=== PATIENT | male | born 1990 | race Caucasian/White ===

== ENCOUNTER 2019-07-09 20:50 | Emergency (ER) | payer OTHER ==
[~2019-07-09] VITALS: Ht 185.4 cm; Wt 90.7 kg
[~2019-07-09 20:50] MED LIST: ACYCLOVIR 400400 M1 PO; ASPIRIN EC325 M1; ATIVAN1 MG PO; ATIVAN2 MG PO; BACTRIM 400-801 EACH PO; CELLCEPT 250 M250 M1 PO; CELLCEPT500 MG PO; COUMADIN 5 MG TA5 M1 PO; CYCLOBENZAPRINE10 MG PO; DIAZEPAM 5 MG5 M1 PO; ENALAPRIL MALEA10 M1 PO; FENTANYL 1100 MCG/HR TP; FLEXERIL PO; HYDROXYCHLOROQ200 M1 PO; LASIX 40 MG TAB40 MG PO; LIDODERM 5%1 PATCH TOP; LIPITOR20 MG PO; LOVENOX SC; MIRALAX255 GM PO; NOHOMEMEDICATIONS; NORCO 10-325 T1 EACH PO; NORCO 5-325 TA1 EACH PO; OS-CAL ULTRA T1 EACH PO; OXYCODONE HCL15 MG PO; OXYCODONE HCL5 M1 PO; OXYIR 5 MG CAPSU5 M1 PO; PERCOCET 5-3251 EACH PO; PRAVASTATIN SOD40 MG PO; PREDNISONE 10 M10 M1 PO; PRENATAL; PROAIR HFA8.5 GM; TOBREX3.5 GM OP; VALTREX 500 MG500 MG PO; VASOTEC20 MG PO; VITAMIN B OR; VITAMIN B-1100 M1 PO; VITAMIN B-12500 MCG PO; VITAMIN D1000 UNI1 PO; ZOFRAN4 MG PO
[2019-07-09 21:21] LABS: ABSOLUTE BASOPHILS 0.1 thou/uL (0.0-0.2); ABSOLUTE EOSINOPHILS 0.2 thou/uL (0.0-0.7); ABSOLUTE LYMPHOCYTES 2.8 thou/uL (0.8-5.3); ABSOLUTE MONOCYTES 0.8 thou/uL (0.0-1.2); ABSOLUTE NEUTROPHILS 9.4 thou/uL (1.6-8.1); BASOPHILS 0.9 %; EOSINOPHILS 1.7 %; HEMATOCRIT 42.5 % (42.0-52.0); HEMOGLOBIN 14.7 gm/dL (14.0-18.0); MCH 32.7 pg (26.0-34.0); MCHC 34.6 g/dL (28.0-37.0); MCV 94.4 fL (80.0-100.0); MONOCYTES 5.7 %; MPV 8.3 fl. (7.2-11.1); NUCLEATED RBCS 0 /100WBC; PLATELET COUNT* 232 thou/uL (150-400); POLYS 70.7 %; RBC 4.51 mil/uL (4.50-6.00); WBC 13.3 thou/uL (4.0-11.0)
[2019-07-09 21:25] LABS: ANION GAP 16 mmol/L (7-16); BUN 12 mg/dL (7-18); CALCIUM 8.7 mg/dL (8.5-10.1); CHLORIDE 103 mmol/L (98-107); CO2 22 mmol/L (21-32); CREATININE 1.1 mg/dL (0.6-1.3); GLUCOSE 87 mg/dL (70-99); POTASSIUM 3.6 mmol/L (3.5-5.1); SODIUM 141 mmol/L (136-145)
[2019-07-09 21:26] LABS: APTT 38.6 Seconds (25.0-31.3); INR 1.1; PROTIME 11.2 Seconds (9.20-11.50)
[2019-07-09 21:36] LABS: ALBUMIN 4.1 g/dL (3.4-5.0); ALKALINE PHOSPHATASE 85 U/L (46-116); NT-PRO BRAIN NAT PEPTIDE < 5 pg/mL (<300); SGOT 17 U/L (15-37); SGPT 15 U/L (30-65); TOTAL BILIRUBIN 0.3 mg/dL (<0.1-1.0); TOTAL PROTEIN 7.9 g/dL (6.4-8.2)
[2019-07-09 21:38] LABS: INFLUENZA A ANTIGEN Negative (Negative); INFLUENZA B ANTIGEN Negative (Negative)
[2019-07-09 22:14] VITALS: BP 140/84
--- NOTE | 2019-07-10 11:51 | EKG ---
[place] [address] ELECTROCARDIOGRAM REPORT Name: MARCUS TSE 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[id number] Requested By: Candido Denise Order Number: [id number] MD: Anoop James Measurements Intervals [place] Rate: 87 P: 50 NH: 175 QRS: 36 QRSD: 82 T: 66 QT: 348 QTc: 419 Interpretive Statements Sinus rhythm Compared to ECG 08/17/2015 05:28:48 Sinus tachycardia no longer present ST (T wave) deviation no longer present Electronically Signed On 07-10-2019 11:49:59 CDT by Anoop James [email or web address] <ELECTRONICALLY SIGNED> By: Anoop James MD, [facility] 07/10/19 [id number] 58 Anoop James MD, [facility] /EPI
== END 2019-07-09 22:30 | disposition home or self-care (01) ==
LOC: M.ERS 20:50
PROVIDERS: Family Medicine
DX: J06.9 Acute upper respiratory infection, unspecified (principal); F41.0 Panic disorder [episodic paroxysmal anxiety]; I12.9 Hypertensive chronic kidney disease with stage 1 through stage 4 chronic kidney disease, or unspecified chronic kidney disease; N18.4 Chronic kidney disease, stage 4 (severe); M06.9 Rheumatoid arthritis, unspecified; F41.9 Anxiety disorder, unspecified; F32.9 Major depressive disorder, single episode, unspecified; F17.210 Nicotine dependence, cigarettes, uncomplicated; Z90.49 Acquired absence of other specified parts of digestive tract; Z86.14 Personal history of Methicillin resistant Staphylococcus aureus infection; Z86.2 Personal history of diseases of the blood and blood-forming organs and certain disorders involving the immune mechanism; Z88.0 Allergy status to penicillin

== ENCOUNTER 2020-01-15 02:30 | Emergency (ER) | payer OTHER ==
[~2020-01-15] VITALS: Ht 185.4 cm; Wt 90.7 kg
[2020-01-15] MEDS ORDERED: DOXYCYCLINE 10100 M2 PO (04:12)
[2020-01-15] MEDS ORDERED: NORCO 5-325 TA1 EAC2 PO ×2 (04:12→04:15)
[2020-01-15 04:34] VITALS: BP 120/70
== END 2020-01-15 04:36 | disposition home or self-care (01) ==
LOC: M.ERS 02:30
DX: S40.012A Contusion of left shoulder, initial encounter (principal); S00.83XA Contusion of other part of head, initial encounter; R07.81 Pleurodynia; Y08.89XA Assault by other specified means, initial encounter; Y93.89 Activity, other specified; Y92.89 Other specified places as the place of occurrence of the external cause; Y99.8 Other external cause status

== ENCOUNTER 2020-02-27 15:52 | Emergency (ER) | payer OTHER ==
[~2020-02-27] VITALS: Ht 185.4 cm; Wt 83.9 kg
[~2020-02-27 15:52] MED LIST changes: +DOXYCYCLINE 10100 M2 PO; +NORCO 5-325 TA1 EAC2 PO
[2020-02-27] MEDS ORDERED: LORAZEPAM 1 MG T1 MG PO (16:06)
[2020-02-27] MEDS ORDERED: ZOLOFT50 M1 PO (16:06)
[2020-02-27] MEDS ORDERED: ATIVAN1 M1 PO (16:46)
[2020-02-27 16:49] VITALS: BP 147/64
== END 2020-02-27 16:50 | disposition home or self-care (01) ==
LOC: M.ERS 15:52
DX: F41.9 Anxiety disorder, unspecified (principal); Z76.0 Encounter for issue of repeat prescription; I12.9 Hypertensive chronic kidney disease with stage 1 through stage 4 chronic kidney disease, or unspecified chronic kidney disease; N18.4 Chronic kidney disease, stage 4 (severe); M32.9 Systemic lupus erythematosus, unspecified; M06.9 Rheumatoid arthritis, unspecified; F17.210 Nicotine dependence, cigarettes, uncomplicated; Z86.718 Personal history of other venous thrombosis and embolism; Z90.49 Acquired absence of other specified parts of digestive tract; Z86.14 Personal history of Methicillin resistant Staphylococcus aureus infection; Z86.2 Personal history of diseases of the blood and blood-forming organs and certain disorders involving the immune mechanism; Z88.0 Allergy status to penicillin

== ENCOUNTER 2020-03-09 16:07 | Emergency (ER) | payer OTHER ==
[~2020-03-09] VITALS: Ht 185.4 cm; Wt 83.9 kg
[~2020-03-09 16:07] MED LIST changes: +ATIVAN1 M1 PO; +LORAZEPAM 1 MG T1 MG PO; +ZOLOFT50 M1 PO
[2020-03-09 16:19] VITALS: BP 160/99
== END 2020-03-09 16:27 | disposition home or self-care (01) ==
LOC: M.ERS 16:07
DX: F41.9 Anxiety disorder, unspecified (principal); Z76.0 Encounter for issue of repeat prescription; M06.9 Rheumatoid arthritis, unspecified; M32.9 Systemic lupus erythematosus, unspecified; I13.10 Hypertensive heart and chronic kidney disease without heart failure, with stage 1 through stage 4 chronic kidney disease, or unspecified chronic kidney disease; N18.4 Chronic kidney disease, stage 4 (severe); F17.210 Nicotine dependence, cigarettes, uncomplicated; Z86.2 Personal history of diseases of the blood and blood-forming organs and certain disorders involving the immune mechanism; Z88.0 Allergy status to penicillin; Z86.718 Personal history of other venous thrombosis and embolism; Z90.49 Acquired absence of other specified parts of digestive tract; Z86.14 Personal history of Methicillin resistant Staphylococcus aureus infection

== ENCOUNTER 2021-04-23 06:44 | Emergency (ER) | payer OTHER ==
[~2021-04-23] VITALS: Ht 185.4 cm; Wt 95.3 kg
[2021-04-23 07:49] LABS: HEMOGLOBIN 13.3 gm/dL (14.0-18.0); MCH 31.5 pg (26.0-34.0); MCHC 34.1 g/dL (28.0-37.0); MCV 92.5 fL (80.0-100.0); MPV 7.4 fl. (7.2-11.1); RBC 4.22 mil/uL (4.50-6.00); RDW-CV 13.1 % (10.5-14.5); WBC 8.9 thou/uL (4.0-11.0)
[2021-04-23 08:13] LABS: CALCIUM 8.5 mg/dL (8.5-10.1); POTASSIUM 3.3 mmol/L (3.5-5.1)
[2021-04-23 08:18] LABS: TOTAL BILIRUBIN 0.4 mg/dL (<0.1-1.0); TOTAL PROTEIN 7.6 g/dL (6.4-8.2)
[2021-04-23 08:46] VITALS: BP 121/73
[2021-04-24] MEDS ORDERED: ZOFRAN ODT4 MG DISSOLVE (08:07)
== END 2021-04-23 08:47 | disposition home or self-care (01) ==
LOC: M.ERS 06:44
PROVIDERS: Emergency Medicine Emergency Medical Services
DX: F41.0 Panic disorder [episodic paroxysmal anxiety] (principal); M06.9 Rheumatoid arthritis, unspecified; F32.9 Major depressive disorder, single episode, unspecified; I12.9 Hypertensive chronic kidney disease with stage 1 through stage 4 chronic kidney disease, or unspecified chronic kidney disease; N18.30 Chronic kidney disease, stage 3 unspecified; F17.210 Nicotine dependence, cigarettes, uncomplicated; Z86.718 Personal history of other venous thrombosis and embolism; Z79.899 Other long term (current) drug therapy; Z88.0 Allergy status to penicillin

== ENCOUNTER 2021-04-24 07:10 | Emergency (ER) | payer OTHER ==
[~2021-04-24] VITALS: Ht 185.4 cm; Wt 95.3 kg
[2021-04-24] MEDS ORDERED: ZOFRAN ODT4 MG DISSOLVE (08:07)
[2021-04-24 08:12] VITALS: BP 122/69
== END 2021-04-24 08:14 | disposition home or self-care (01) ==
LOC: M.ERS 07:10
DX: F41.9 Anxiety disorder, unspecified (principal); R11.2 Nausea with vomiting, unspecified; R11.0 Nausea; K30 Functional dyspepsia; R20.0 Anesthesia of skin; R20.2 Paresthesia of skin; M06.9 Rheumatoid arthritis, unspecified; F32.9 Major depressive disorder, single episode, unspecified; I12.9 Hypertensive chronic kidney disease with stage 1 through stage 4 chronic kidney disease, or unspecified chronic kidney disease; N18.4 Chronic kidney disease, stage 4 (severe); F17.210 Nicotine dependence, cigarettes, uncomplicated; Z86.718 Personal history of other venous thrombosis and embolism; Z90.49 Acquired absence of other specified parts of digestive tract; Z86.14 Personal history of Methicillin resistant Staphylococcus aureus infection; Z79.899 Other long term (current) drug therapy; Z88.0 Allergy status to penicillin